=== PATIENT | female | born 2000 | race Caucasian/White ===

== ENCOUNTER 2022-01-14 11:12 | Outpatient (CLI) | payer OTHER | END 2022-01-14 11:13 | disposition home or self-care (01) | LOC: CSHLAB 11:12 | PROVIDERS: ATTEND Obstetrics & Gynecology | DX: Z20.822 Contact with and (suspected) exposure to COVID-19 (principal) | CPT/HCPCS: U0003; U0005 ==

== ENCOUNTER 2022-01-16 05:42 | Inpatient (IN) | payer OTHER ==
[2022-01-16 06:23] VITALS: BMI 30.1
[2022-01-16] MEDS ORDERED: Promethazine HCl 25 MG/ML VIAL IM PRN ×2 (06:40→12:11)
[2022-01-16] MEDS ORDERED: HYDROcodone/Acetaminophen 5/325 mg Tablet PO PRN ×2 (06:40)
[2022-01-16] MEDS ORDERED: Misoprostol 200 MCG TAB PR PRN (06:40)
[2022-01-16] MEDS ORDERED: Lidocaine 1% (PF) 30 ML VIAL SC PRN (06:40)
[2022-01-16] MEDS: Lactated Ringer's 1,000 ML IV SCH ×2 (06:40→09:06)
[2022-01-16] MEDS ORDERED: Ondansetron PF 4 MG/2 ML Vial IVP PRN ×2 (06:40→12:11)
[2022-01-16] MEDS ORDERED: Butorphanol Tartrate 1 MG/ML VIAL SLOW IVP PRN (06:40)
[2022-01-16] MEDS ORDERED: Diphenoxylate HCl/Atropine Tablet PO PRN ×2 (06:40)
[2022-01-16] MEDS ORDERED: Acetaminophen 500 MG TAB PO PRN (06:40)
[2022-01-16] MEDS ORDERED: Methylergonovine 0.2 MG/ML VIAL IM PRN (06:40)
[2022-01-16] MEDS ORDERED: Ibuprofen 800 MG TAB PO PRN (06:40)
[2022-01-16] MEDS ORDERED: hydrALAZINE 20 MG/ML VIAL SLOW IVP PRN ×2 (06:40→17:01)
[2022-01-16] MEDS ORDERED: Carboprost 250 MCG/ML AMP IM PRN (06:40)
[2022-01-16] MEDS ORDERED: Penicillin G Potassium 5 MILL.UNITS in Sodium Chloride 0.9% 100 ML IVPB SCH (06:45)
[2022-01-16] MEDS ORDERED: NS w/ Oxytocin 30 units 500 ML IV SCH ×2 (06:45)
[2022-01-16] MEDS ORDERED: Bupivacaine/Epinephrine 0.25% 30 ML VIAL ONE (07:00)
[2022-01-16 07:44] LABS: Hemoglobin 10.3 g/dL (12.0-15.5); Mean Corpuscular HGB CONC 33.3 g/dL (32.0-36.0); Mean Corpuscular Volume 80.9 fl (81.6-98.3); Mean Platelet Volume 12.2 fl (7.4-10.4); Platelet Count 196 10x3/uL (150-450); RBC Distribution Width 14.1 % (11.5-14.5); Red Blood Cell (RBC) Count 3.82 10x6/uL (3.90-5.03); White Blood Cell (WBC) Count 7.7 10x3/uL (3.5-10.5)
[2022-01-16 07:59] LABS: Syphilis Antibody Nonreactive (Nonreactive); Syphilis Antibody Index 0.04 S/CO (<1.00 Non-Reactive)
[2022-01-16 08:17] LABS: HBSAg Index 0.18 S/CO (0-0.99)
[2022-01-16 08:18] LABS: Hep B Surf Ag NonReactive S/CO (NonReactive)
[2022-01-16] MEDS: Penicillin G 2.5 MILL.units 2.5 MILL.UNITS in Premix Bag 1 BAG IVPB SCH ×3 (09:05→15:25)
[2022-01-16] MEDS ORDERED: Fentanyl 2 mcg/Bup 0.1% Cadd 100 ML ONE (11:33)
[2022-01-16] MEDS ORDERED: ePHEDrine Sulfate 50 MG/10 ML VIAL SLOW IVP PRN (12:11)
[2022-01-16] MEDS ORDERED: Acetaminophen 325 MG TAB PO PRN (12:11)
[2022-01-16] MEDS ORDERED: Naloxone HCl 0.4 mg/ml Vial IVP PRN ×2 (12:11)
[2022-01-16] MEDS ORDERED: Moisturizing Cream (Eucerin) 113 GM JAR TOP PRN (12:11)
[2022-01-16] MEDS ORDERED: Lactated Ringer's 500 ML IV PRN (12:11)
[2022-01-16] MEDS ORDERED: diphenhydrAMINE 50 MG/ML VIAL IVP PRN (12:11)
[2022-01-16] MEDS ORDERED: Communication Order-Pharmacy FS SCH (12:15)
[2022-01-16] MEDS ORDERED: Fentanyl 2 mcg/Bupivacaine 0.1% Cassette 100 ML EPIDURAL SCH (12:15)
[2022-01-16] MEDS ORDERED: traMADol HCl 50 MG TAB PO PRN (17:01)
[2022-01-16] MEDS ORDERED: Boostrix 0.5 ML (Tdap) VIAL IM ONE (17:01)
[2022-01-16] MEDS ORDERED: Preparation H Ointment 28 GM TUBE PR PRN (17:01)
[2022-01-16] MEDS ORDERED: Bisacodyl 10 MG SUPP PR PRN (17:01)
[2022-01-16] MEDS ORDERED: Benzocaine-Menthol 82.5 ML CAN TOP PRN (17:01)
[2022-01-16] MEDS ORDERED: Milk Of Magnesia 30 ML UDCUP PO PRN (17:01)
[2022-01-16] MEDS ORDERED: diphenhydrAMINE 25 MG CAP PO PRN (17:01)
[2022-01-16] MEDS ORDERED: NS w/ Oxytocin 30 units 500 ML ONE (18:06)
[2022-01-16] MEDS: Ibuprofen 800 MG TAB PO SCH (21:19)
[2022-01-16] MEDS: Docusate 100 MG CAP PO SCH (21:20)
[2022-01-17] MEDS: Ibuprofen 800 MG TAB PO SCH ×2 (05:48→14:17)
[2022-01-17] MEDS: Docusate 100 MG CAP PO SCH (08:33)
[2022-01-17] MEDS ORDERED: Prenatal Vitamin 1 TAB PO SCH (09:00)
[2022-01-17 11:28] VITALS: BP 103/59; TEMP 98
== END 2022-01-17 18:45 | disposition home or self-care (01) | DRG 806 ==
LOC: CSHLD 05:42 → CSHPED 18:36
PROVIDERS: ADMIT Obstetrics & Gynecology; ATTEND Obstetrics & Gynecology
PROC: 10E0XZZ Delivery of Products of Conception, External Approach (ICD-10-PCS; principal; 2022-01-16)
PROC: 10907ZC Drainage of Amniotic Fluid, Therapeutic from Products of Conception, Via Natural or Artificial Opening (ICD-10-PCS; 2022-01-16)
DX: O99.824 Streptococcus B carrier state complicating childbirth (principal); O98.52 Other viral diseases complicating childbirth; Z37.0 Single live birth; Z3A.40 40 weeks gestation of pregnancy; B00.9 Herpesviral infection, unspecified; Z79.899 Other long term (current) drug therapy
CPT/HCPCS: 36415; 51702; 85027; 86780; 86850; 86900; 86901; 87340; J2540; J2590; J3490; J7120